=== PATIENT | female | born 1970 ===

== ENCOUNTER 2019-02-06 17:10 | Emergency (ER) | payer OTHER ==
[~2019-02-06] VITALS: Ht 170.2 cm; Wt 88.5 kg
[2019-02-06] MEDS ORDERED: TOPROL XL25 M1 PO (17:24)
[2019-02-06] MEDS ORDERED: NORVASC5 MG PO (17:24)
[2019-02-06] MEDS ORDERED: LEVOTHYROXINE50 MCG PO (17:24)
== END 2019-02-06 19:34 | disposition home or self-care (01) ==
LOC: ER 17:10
DX: N39.0 Urinary tract infection, site not specified (principal); M54.5 Low back pain

== ENCOUNTER 2021-04-19 11:01 | Day surgery (SDC) | payer OTHER ==
[~2021-04-19 11:01] MED LIST: AMLO PO; LEVOTHYROXINE50 MCG PO; LOSARTAN POTASS50 MG PO; NORVASC5 MG PO; TOPROL XL25 M1 PO
[2021-04-19] MEDS ORDERED: ULTRACET PO (17:03)
== END 2021-04-19 19:25 | disposition home or self-care (01) ==
LOC: CIR.AMB 11:01
PROVIDERS: ATTEND Surgery
DX: K43.2 Incisional hernia without obstruction or gangrene (principal); K42.9 Umbilical hernia without obstruction or gangrene; K81.1 Chronic cholecystitis; Z20.822 Contact with and (suspected) exposure to COVID-19